=== PATIENT | female | born 1955 | race Caucasian/White ===

== ENCOUNTER → 2017-11-20 | Outpatient (CLI) | payer OTHER ==
--- NOTE | ~2017-11-20 | EKG ---
[address] [address] ELECTROCARDIOGRAM REPORT Name: JOSE ANTONIO WEINBERG [id number] Admission: 11/20/17 Attend Phys: Crystal De La Cruz MD Discharge: Date of : 55 Report #: [id number] THIS REPORT FOR: //name// [facility] Test Date: 2017-11-20 Test Time: 08:35:54 Pat Name: JOSE ANTONIO WEINBERG Department: Room: Gender: F [employer] Driver: Kayley WALKER : 1955 Requested By: Crystal De La Cruz Order Number: [id number] MD: Hai Mathew Measurements Intervals [place] Rate: 69 P: 49 [place]: 174 QRS: 39 QRSD: 93 T: 20 QT: 419 QTc: 449 Interpretive Statements Sinus rhythm No significant abnormality No previous ECG available for comparison Electronically Signed On 11-21-2017 10:18:23 CDT by Hai Mathew [email or web address] <ELECTRONICALLY SIGNED> By: Hai Mathew MD, [facility] 11/21/17 1018 [id number] Hai Mathew MD, FACC /EPI
== END ==
LOC: CV 08:07
DX: E11.9 Type 2 diabetes mellitus without complications (principal)